=== PATIENT | female | born 1935 | race Caucasian/White ===

== ENCOUNTER 2018-03-04 17:25 | Inpatient (IN) | payer MEDICARE, OTHER ==
[~2018-03-04 17:25] MED LIST: ETOMIDATE 20 MG INJ
[2018-03-04 18:17] LABS: AADO2 Arterial 495.7 mmHg (7.0-24.0); ADD MAN DIFF? NO; Allen Test ACCEPTAB; Arterial Base Excess -1.1 mmol/L (-3.0-3); Arterial Blood Gas Oxygen Sat 97.9 mmHG (95.0-100.0); Arterial COHb 0.9 % (0.0-3.0); Arterial Fraction of Oxyhgb 96.8 % (93.0-99.0); Arterial HCO3 29.8 mmol/L (22.0-26.0); Arterial MetHb 0.2 % (0.0-1.5); Arterial Total Hemglobin 12.5 g/dl (12.0-18.0); MODE MASK - NRB; Site Right Radial
[2018-03-04 18:21] LABS: WHITE BLOOD COUNT 12.7 10^3/ul (4.8-10.8)
[2018-03-04 18:21] LABS: BASOPHIL # 0.1 10^3/ul (0.0-0.1); BASOPHILS % 0.4 % (0.0-2.0); EOSINOPHILS # 0.1 10^3/ul (0.0-0.5); EOSINOPHILS % 0.8 % (0.0-7.0); HEMATOCRIT 37.8 % (37.0-47.0); HEMOGLOBIN 11.1 g/dl (12.0-16.0); LYMPHOCYTES # 2.1 10^3/ul (0.8-2.9); LYMPHOCYTES % 16.6 % (15.0-51.0); MEAN CORPUSCULAR HEMOGLOBIN 27.6 pg (29.0-33.0); MEAN CORPUSCULAR HGB CONC 29.4 g/dl (32.0-37.0); MEAN PLATELET VOLUME 10.5 fl (7.4-10.4); MONOCYTE # 1.3 10^3/ul (0.3-0.9); MONOCYTES % 10.1 % (0.0-11.0); NEUTROPHIL # 8.9 10^3/ul (1.6-7.5); NEUTROPHILS % 70.4 % (39.0-77.0); NUCLEATED RED BLOOD CELLS% 0.2 /100WBC (0.0-0.0); PLATELET COUNT 293 10^3/UL (140-415); RED BLOOD COUNT 4.02 10^6/ul (4.20-5.40); RED CELL DISTRIBUTION WIDTH 15.9 % (11.5-14.5)
[2018-03-04 18:46] LABS: ALANINE AMINOTRANSFERASE 18 IU/L (13-69); ALBUMIN 3.9 g/dl (3.3-4.9); ALBUMIN/GLOBULIN RATIO 1.11; ALKALINE PHOSPHATASE 96 IU/L (42-121); ANION GAP 10 (5-13); ASPARTATE AMINO TRANSFERASE 18 IU/L (15-46); BILIRUBIN,INDIRECT 0.1 mg/dl (0-1.1); BILIRUBIN,TOTAL 0.1 mg/dl (0.2-1.3); BLOOD UREA NITROGEN 38 mg/dl (7-20); CALCIUM 9.3 mg/dl (8.4-10.2); CARBON DIOXIDE 27 mmol/L (21-31); CHLORIDE 104 mmol/L (97-110); CREATININE 1.67 mg/dl (0.44-1.00); GLUCOSE 151 mg/dl (70-220); LIPASE 105 U/L (23-300); POTASSIUM 3.9 mmol/L (3.5-5.1); SODIUM 141 mmol/L (135-144); TOTAL PROTEIN 7.4 g/dl (6.1-8.1)
[2018-03-04 18:57] LABS: TROPONIN-I 0.062 ng/ml (0.000-0.120)
[2018-03-04] MEDS: NORepinephrine 8MG/250 ML (PMX 250 ML IV (19:01)
[2018-03-04] MEDS: PROPOFOL 100 ML IV (19:01)
[2018-03-04] MEDS: ETOMIDATE 20 MG INJ IV (19:05)
[2018-03-04] MEDS: MIDAZOLAM (DRIP) 50 mg/50 mL 50 ML IV (19:13)
[2018-03-04] MEDS: SODIUM CHLORIDE 0.9% 1L BAG IV* (19:14)
[2018-03-04] MEDS: ALBUTEROL 0.5% (NEB) 2.5 MG/0.5 ML AMP INH (19:24)
[2018-03-04] MEDS ORDERED: ACETAMINOPHEN 325 MG TAB PO (19:30)
[2018-03-04] MEDS ORDERED: ALBUTEROL/IPRATROPIUM (NEB) 3 ML AMP HHN (19:30)
[2018-03-04] MEDS ORDERED: NACL 0.9% 3 ML SYG IV (19:30)
[2018-03-04] MEDS ORDERED: LORAZEPAM 2 MG INJ (19:31)
[2018-03-04] MEDS: LORAZEPAM 2 MG INJ IV (19:35)
[2018-03-04] MEDS: CEFTRIAXONE 1 GM/50 ML (PMX) 50 ML IVPB (19:35)
[2018-03-04] MEDS: AZITHROMYCIN 500MG/NS (PMX) 250 ML IVPB (19:59)
[2018-03-04] MEDS: ALBUTEROL/IPRATROPIUM (NEB) 3 ML AMP HHN (20:00)
[2018-03-04] MEDS: BUDESONIDE (NEB) 0.5MG/2ML AMP HHN (20:00)
[2018-03-04] MEDS: METHYLPREDNISOLONE 125 MG INJ IV ×2 (20:08→21:17)
[2018-03-04 20:13] LABS: ADD UMIC YES; UR ASCORBIC ACID NEGATIVE (NEGATIVE); UR BILIRUBIN (Dip) NEGATIVE (NEGATIVE); UR BLOOD (Dip) NEGATIVE (NEGATIVE); UR CLARITY SLIGHTLY CLOUDY (CLEAR); UR COLOR YELLOW (YELLOW); UR GLUCOSE (Dip) NEGATIVE (NEGATIVE); UR HYALINE CAST FEW /HPF (NONE SEEN); UR KETONES (Dip) NEGATIVE (NEGATIVE); UR LEUKOCYTE ESTERASE (Dip) NEGATIVE Leu/ul (NEGATIVE); UR NITRITE (Dip) NEGATIVE (NEGATIVE); UR RBC 4 /HPF (0-5); UR SPECIFIC GRAVITY (Dip) 1.019 (1.003-1.030); UR TOTAL PROTEIN (Dip) 1+ mg/dl (NEGATIVE); UR UROBILINOGEN (Dip) 1+ mg/dL (NEGATIVE); UR WBC 4 /HPF (0-5)
[2018-03-04 21:02] LABS: AADO2 Arterial 199.9 mmHg (7.0-24.0); Arterial Blood Gas Oxygen Sat 98.1 mmHG (95.0-100.0); Arterial COHb 0.3 % (0.0-3.0); Arterial Fraction of Oxyhgb 97.6 % (93.0-99.0); Arterial HCO3 19.7 mmol/L (22.0-26.0); Arterial MetHb 0.2 % (0.0-1.5); Arterial Total Hemglobin 11.1 g/dl (12.0-18.0); Arterial pCO2 35.2 mmhg (35-45); MODE VENT - AC; Site Right Brachial
[2018-03-04 21:10] LABS: B-TYPE NATRIURETIC PEPTIDE 5570 PG/ML (0-450)
[2018-03-04] MEDS: SOD CHLORIDE 0.9% 1,000 ML IV (22:27)
[2018-03-05] MEDS: MIDAZOLAM (DRIP) 50 mg/50 mL 50 ML IV (00:46)
[2018-03-05] MEDS: PIPER-TAZO 3.375 GM IV (PMX) 100 ML IVPB ×3 (05:07→22:37)
[2018-03-05] MEDS: PANTOPRAZOLE 40 MG INJ IV (05:07)
[2018-03-05] MEDS: LEVOFLOXACIN 500MG/D5W (PMX) 100 ML IVPB (05:07)
[2018-03-05 05:10] LABS: ADD MAN DIFF? NO
[2018-03-05 05:16] LABS: BASOPHILS % 0.2 % (0.0-2.0); HEMATOCRIT 31.7 % (37.0-47.0); HEMOGLOBIN 9.9 g/dl (12.0-16.0); LYMPHOCYTES # 0.7 10^3/ul (0.8-2.9); LYMPHOCYTES % 8.6 % (15.0-51.0); MEAN CORPUSCULAR HEMOGLOBIN 27.7 pg (29.0-33.0); MEAN CORPUSCULAR HGB CONC 31.2 g/dl (32.0-37.0); MEAN CORPUSCULAR VOLUME 88.5 fl (82.0-101.0); MEAN PLATELET VOLUME 10.7 fl (7.4-10.4); MONOCYTE # 0.1 10^3/ul (0.3-0.9); MONOCYTES % 0.7 % (0.0-11.0); NEUTROPHIL # 7.6 10^3/ul (1.6-7.5); PLATELET COUNT 263 10^3/UL (140-415); RED BLOOD COUNT 3.58 10^6/ul (4.20-5.40); RED CELL DISTRIBUTION WIDTH 15.8 % (11.5-14.5)
[2018-03-05 05:16] LABS: WHITE BLOOD COUNT 8.6 10^3/ul (4.8-10.8)
[2018-03-05 05:21] LABS: HEMOGLOBIN A1C 6.6 % (0-5.9)
[2018-03-05 05:45] LABS: ALANINE AMINOTRANSFERASE 26 IU/L (13-69); ALBUMIN 3.1 g/dl (3.3-4.9); ALBUMIN/GLOBULIN RATIO 1.19; ALKALINE PHOSPHATASE 75 IU/L (42-121); ANION GAP 10 (5-13); ASPARTATE AMINO TRANSFERASE 15 IU/L (15-46); BILIRUBIN,INDIRECT 0.1 mg/dl (0-1.1); BILIRUBIN,TOTAL 0.1 mg/dl (0.2-1.3); BLOOD UREA NITROGEN 34 mg/dl (7-20); CALCIUM 8.3 mg/dl (8.4-10.2); CARBON DIOXIDE 22 mmol/L (21-31); CHLORIDE 110 mmol/L (97-110); CREATININE 1.33 mg/dl (0.44-1.00); GLUCOSE 166 mg/dl (70-220); MAGNESIUM 1.6 mg/dl (1.7-2.5); POTASSIUM 3.7 mmol/L (3.5-5.1); SODIUM 142 mmol/L (135-144); TOTAL PROTEIN 5.7 g/dl (6.1-8.1)
[2018-03-05] MEDS: METHYLPREDNISOLONE 125 MG INJ IV (07:50)
[2018-03-05] MEDS: PROPOFOL 100 ML IV ×3 (07:51→21:43)
[2018-03-05] MEDS: BUDESONIDE (NEB) 0.5MG/2ML AMP HHN ×2 (09:02→19:39)
[2018-03-05] MEDS: ALBUTEROL/IPRATROPIUM (NEB) 3 ML AMP HHN ×3 (09:02→19:39)
[2018-03-05 10:36] LABS: AADO2 Arterial 184.2 mmHg (7.0-24.0); Allen Test ACCEPTAB; Arterial Base Excess -2.1 mmol/L (-3.0-3); Arterial Blood Gas Oxygen Sat 94.4 mmHG (95.0-100.0); Arterial COHb 0.3 % (0.0-3.0); Arterial Fraction of Oxyhgb 93.9 % (93.0-99.0); Arterial HCO3 20.2 mmol/L (22.0-26.0); Arterial MetHb 0.2 % (0.0-1.5); Arterial Total Hemglobin 11.8 g/dl (12.0-18.0); Arterial pCO2 27.2 mmhg (35-45); MODE VENT - AC; Site Right Radial
[2018-03-05] MEDS: SOD CHLORIDE 0.9% 1,000 ML IV (16:13)
[2018-03-05] MEDS: METHYLPREDNISOLONE 40 MG INJ IV (21:00)
[2018-03-06] MEDS: PROPOFOL 100 ML IV ×5 (00:14→21:22)
[2018-03-06] MEDS: PANTOPRAZOLE 40 MG INJ IV (05:51)
[2018-03-06] MEDS: LEVOFLOXACIN 250MG/D5W (PMX) 50 ML IVPB (05:51)
[2018-03-06] MEDS: PIPER-TAZO 3.375 GM IV (PMX) 100 ML IVPB (05:52)
[2018-03-06 06:19] LABS: ADD MAN DIFF? NO
[2018-03-06 06:25] LABS: WHITE BLOOD COUNT 10.1 10^3/ul (4.8-10.8)
[2018-03-06 06:25] LABS: BASOPHILS % 0.1 % (0.0-2.0); HEMATOCRIT 29.6 % (37.0-47.0); HEMOGLOBIN 9.4 g/dl (12.0-16.0); LYMPHOCYTES # 0.8 10^3/ul (0.8-2.9); LYMPHOCYTES % 8.1 % (15.0-51.0); MEAN CORPUSCULAR HEMOGLOBIN 27.9 pg (29.0-33.0); MEAN CORPUSCULAR HGB CONC 31.8 g/dl (32.0-37.0); MEAN CORPUSCULAR VOLUME 87.8 fl (82.0-101.0); MEAN PLATELET VOLUME 10.7 fl (7.4-10.4); MONOCYTE # 0.7 10^3/ul (0.3-0.9); MONOCYTES % 7.1 % (0.0-11.0); NEUTROPHIL # 8.4 10^3/ul (1.6-7.5); NEUTROPHILS % 83.2 % (39.0-77.0); PLATELET COUNT 268 10^3/UL (140-415); RED BLOOD COUNT 3.37 10^6/ul (4.20-5.40)
[2018-03-06 06:38] LABS: AADO2 Arterial 176.9 mmHg (7.0-24.0); Allen Test ACCEPTAB; Arterial Base Excess -1.9 mmol/L (-3.0-3); Arterial Blood Gas Oxygen Sat 95.8 mmHG (95.0-100.0); Arterial COHb 0.3 % (0.0-3.0); Arterial Fraction of Oxyhgb 95.1 % (93.0-99.0); Arterial MetHb 0.4 % (0.0-1.5); Arterial Total Hemglobin 10.9 g/dl (12.0-18.0); Arterial pCO2 25.7 mmhg (35-45); MODE VENT - AC; Site Right Brachial
[2018-03-06 06:58] LABS: ANION GAP 7 (5-13); BLOOD UREA NITROGEN 38 mg/dl (7-20); CALCIUM 8.3 mg/dl (8.4-10.2); CARBON DIOXIDE 21 mmol/L (21-31); CHLORIDE 114 mmol/L (97-110); CREATININE 1.28 mg/dl (0.44-1.00); GLUCOSE 178 mg/dl (70-220); MAGNESIUM 1.8 mg/dl (1.7-2.5); POTASSIUM 3.7 mmol/L (3.5-5.1); SODIUM 142 mmol/L (135-144)
[2018-03-06] MEDS: ALBUTEROL/IPRATROPIUM (NEB) 3 ML AMP HHN ×3 (08:07→20:03)
[2018-03-06] MEDS: BUDESONIDE (NEB) 0.5MG/2ML AMP HHN ×2 (08:09→20:03)
[2018-03-06] MEDS: METHYLPREDNISOLONE 40 MG INJ IV (08:50)
[2018-03-06] MEDS: ENOXAPARIN 30 MG/0.3 ML SYG SC (08:55)
[2018-03-06] MEDS: morphine 2 MG INJ IV ×3 (10:01→21:29)
[2018-03-06] MEDS: SOD CHLORIDE 0.9% 1,000 ML IV (14:39)
[2018-03-06] MEDS: HALOPERIDOL 5 MG INJ IM (22:28)
[2018-03-07] MEDS: PROPOFOL 100 ML IV ×2 (02:38→05:44)
[2018-03-07] MEDS: PANTOPRAZOLE 40 MG INJ IV (05:02)
[2018-03-07] MEDS: LEVOFLOXACIN 250MG/D5W (PMX) 50 ML IVPB (05:02)
[2018-03-07 05:05] LABS: ADD MAN DIFF? NO
[2018-03-07 05:38] LABS: ANION GAP 5 (5-13); BLOOD UREA NITROGEN 37 mg/dl (7-20); CALCIUM 8.3 mg/dl (8.4-10.2); CARBON DIOXIDE 22 mmol/L (21-31); CHLORIDE 116 mmol/L (97-110); CREATININE 1.05 mg/dl (0.44-1.00); GLUCOSE 122 mg/dl (70-220); POTASSIUM 3.8 mmol/L (3.5-5.1); SODIUM 143 mmol/L (135-144)
[2018-03-07 05:41] LABS: BASOPHILS % 0.1 % (0.0-2.0); EOSINOPHILS % 0.4 % (0.0-7.0); HEMATOCRIT 29.8 % (37.0-47.0); LYMPHOCYTES % 20.4 % (15.0-51.0); MEAN CORPUSCULAR HEMOGLOBIN 27.3 pg (29.0-33.0); MEAN CORPUSCULAR HGB CONC 30.2 g/dl (32.0-37.0); MEAN CORPUSCULAR VOLUME 90.3 fl (82.0-101.0); MEAN PLATELET VOLUME 10.9 fl (7.4-10.4); MONOCYTE # 0.7 10^3/ul (0.3-0.9); MONOCYTES % 7.2 % (0.0-11.0); NEUTROPHIL # 6.9 10^3/ul (1.6-7.5); NEUTROPHILS % 70.9 % (39.0-77.0); NUCLEATED RED BLOOD CELLS% 0.2 /100WBC (0.0-0.0); PLATELET COUNT 240 10^3/UL (140-415); RED CELL DISTRIBUTION WIDTH 16.5 % (11.5-14.5)
[2018-03-07 05:41] LABS: WHITE BLOOD COUNT 9.7 10^3/ul (4.8-10.8)
[2018-03-07 05:42] LABS: POSITIVE DIFF @See below
[2018-03-07] MEDS: SOD CHLORIDE 0.9% 1,000 ML IV (05:44)
[2018-03-07] MEDS: ENOXAPARIN 30 MG/0.3 ML SYG SC (08:24)
[2018-03-07] MEDS: ALBUTEROL/IPRATROPIUM (NEB) 3 ML AMP HHN ×3 (08:32→21:01)
[2018-03-07] MEDS: BUDESONIDE (NEB) 0.5MG/2ML AMP HHN ×2 (08:32→21:01)
[2018-03-07] MEDS: morphine 2 MG INJ IV (08:38)
[2018-03-07 08:56] LABS: ANISOCYTOSIS 1+ (0-0); BURR CELLS 1+ (0-0); EOSINOPHILS % (M) 2 % (0-7); GIANT THROMBO% (M) 1 % (0-0); HYPOCHROMASIA 1+ (0-0); LYMPHOCYTES % (M) 21 % (15-51); METAMYELOCYTES #M 0.1 10^3/ul (0.0-0.0); METAMYELOCYTES %M 2 % (0-0); MICROCYTOSIS 1+ (0-0); MONOCYTE #M 0.5 10^3/ul (0.3-0.9); MONOCYTES % (M) 6 % (0-11); PLATELET ESTIMATE NORMAL; POLYCHROMASIA 1+ (0-0); REACTIVE LYMPHOCYTES% (M) 1 % (0-0); SEGMENTED NEUTROPHILS (M) % 68 % (39-77); SMUDGE%M 4 % (0-0)
[2018-03-07] MEDS: LORAZEPAM 2 MG INJ IV (09:20)
[2018-03-07 09:23] LABS: AADO2 Arterial 145.1 mmHg (7.0-24.0); Allen Test ACCEPTAB; Arterial Base Excess -1.4 mmol/L (-3.0-3); Arterial Blood Gas Oxygen Sat 94.4 mmHG (95.0-100.0); Arterial COHb 0.3 % (0.0-3.0); Arterial Fraction of Oxyhgb 93.9 % (93.0-99.0); Arterial HCO3 24.8 mmol/L (22.0-26.0); Arterial MetHb 0.2 % (0.0-1.5); Arterial Total Hemglobin 10.3 g/dl (12.0-18.0); Arterial pCO2 48.4 mmhg (35-45); Blood Gas PS 10; MODE VENT - CPAP; Site Right Radial
[2018-03-07] MEDS: FUROSEMIDE 40 MG INJ IV ×2 (11:38→18:00)
[2018-03-07] MEDS: HALOPERIDOL 5 MG INJ IM (20:55)
[2018-03-08 05:05] LABS: ADD MAN DIFF? NO
[2018-03-08 05:12] LABS: BASOPHILS % 0.4 % (0.0-2.0); EOSINOPHILS # 0.2 10^3/ul (0.0-0.5); EOSINOPHILS % 2.3 % (0.0-7.0); HEMATOCRIT 35.9 % (37.0-47.0); HEMOGLOBIN 10.9 g/dl (12.0-16.0); LYMPHOCYTES # 1.4 10^3/ul (0.8-2.9); LYMPHOCYTES % 14.2 % (15.0-51.0); MEAN CORPUSCULAR HEMOGLOBIN 27.2 pg (29.0-33.0); MEAN CORPUSCULAR HGB CONC 30.4 g/dl (32.0-37.0); MEAN CORPUSCULAR VOLUME 89.5 fl (82.0-101.0); MEAN PLATELET VOLUME 10.6 fl (7.4-10.4); MONOCYTE # 0.8 10^3/ul (0.3-0.9); MONOCYTES % 7.6 % (0.0-11.0); NEUTROPHIL # 7.6 10^3/ul (1.6-7.5); NEUTROPHILS % 74.4 % (39.0-77.0); PLATELET COUNT 270 10^3/UL (140-415); RED BLOOD COUNT 4.01 10^6/ul (4.20-5.40); RED CELL DISTRIBUTION WIDTH 16.3 % (11.5-14.5)
[2018-03-08 05:12] LABS: WHITE BLOOD COUNT 10.2 10^3/ul (4.8-10.8)
[2018-03-08] MEDS: LEVOFLOXACIN 250MG/D5W (PMX) 50 ML IVPB (05:24)
[2018-03-08] MEDS: FUROSEMIDE 40 MG INJ IV ×2 (05:26→18:14)
[2018-03-08 05:34] LABS: ANION GAP 7 (5-13); BLOOD UREA NITROGEN 28 mg/dl (7-20); CALCIUM 8.9 mg/dl (8.4-10.2); CARBON DIOXIDE 29 mmol/L (21-31); CHLORIDE 110 mmol/L (97-110); CREATININE 1.07 mg/dl (0.44-1.00); GLUCOSE 93 mg/dl (70-220); MAGNESIUM 1.8 mg/dl (1.7-2.5); POTASSIUM 3.5 mmol/L (3.5-5.1); SODIUM 146 mmol/L (135-144)
[2018-03-08] MEDS: ENOXAPARIN 30 MG/0.3 ML SYG SC (08:26)
[2018-03-08] MEDS: BUDESONIDE (NEB) 0.5MG/2ML AMP HHN ×2 (10:33→20:02)
[2018-03-08] MEDS: ALBUTEROL/IPRATROPIUM (NEB) 3 ML AMP HHN ×3 (10:33→20:02)
[2018-03-08] MEDS: POTASSIUM CHLORIDE (SR) 20 MEQ TAB PO (11:41)
[2018-03-08] MEDS: ONDANSETRON 4 MG INJ IV (12:31)
[2018-03-08] MEDS: IODIXANOL LOCM 100 ML BTL (14:32)
[2018-03-08] MEDS: SOD CHLORIDE 0.9% 100 ML (14:32)
[2018-03-08 14:40] LABS: AADO2 Arterial 176.9 mmHg (7.0-24.0); Allen Test ACCEPTAB; Arterial Base Excess -1.9 mmol/L (-3.0-3); Arterial Blood Gas Oxygen Sat 95.8 mmHG (95.0-100.0); Arterial COHb 0.3 % (0.0-3.0); Arterial Fraction of Oxyhgb 95.1 % (93.0-99.0); Arterial MetHb 0.4 % (0.0-1.5); Arterial Total Hemglobin 10.9 g/dl (12.0-18.0); Arterial pCO2 25.7 mmhg (35-45); MODE VENT - AC; Site Right Brachial
[2018-03-08] MEDS: HYDROCODONE/APAP (5/325) TAB PO (23:45)
[2018-03-09] MEDS: FUROSEMIDE 40 MG INJ IV (05:18)
[2018-03-09 05:38] LABS: ADD MAN DIFF? NO
[2018-03-09] MEDS: LEVOFLOXACIN 250MG/D5W (PMX) 50 ML IVPB (05:39)
[2018-03-09 05:41] LABS: WHITE BLOOD COUNT 15.5 10^3/ul (4.8-10.8)
[2018-03-09 05:42] LABS: BASOPHILS % 0.1 % (0.0-2.0); EOSINOPHILS # 0.1 10^3/ul (0.0-0.5); EOSINOPHILS % 0.3 % (0.0-7.0); HEMATOCRIT 36.3 % (37.0-47.0); HEMOGLOBIN 11.3 g/dl (12.0-16.0); LYMPHOCYTES # 1.4 10^3/ul (0.8-2.9); LYMPHOCYTES % 9.1 % (15.0-51.0); MEAN CORPUSCULAR HEMOGLOBIN 27.8 pg (29.0-33.0); MEAN CORPUSCULAR HGB CONC 31.1 g/dl (32.0-37.0); MEAN CORPUSCULAR VOLUME 89.2 fl (82.0-101.0); MEAN PLATELET VOLUME 10.3 fl (7.4-10.4); MONOCYTES % 6.5 % (0.0-11.0); NEUTROPHIL # 12.8 10^3/ul (1.6-7.5); PLATELET COUNT 256 10^3/UL (140-415); RED BLOOD COUNT 4.07 10^6/ul (4.20-5.40)
[2018-03-09 06:06] LABS: ANION GAP 9 (5-13); BLOOD UREA NITROGEN 36 mg/dl (7-20); CALCIUM 8.8 mg/dl (8.4-10.2); CARBON DIOXIDE 35 mmol/L (21-31); CHLORIDE 100 mmol/L (97-110); CREATININE 1.29 mg/dl (0.44-1.00); GLUCOSE 143 mg/dl (70-220); SODIUM 144 mmol/L (135-144)
[2018-03-09] MEDS: HYDROCODONE/APAP (5/325) TAB PO (06:06)
[2018-03-09] MEDS: ALBUTEROL/IPRATROPIUM (NEB) 3 ML AMP HHN ×3 (08:41→20:02)
[2018-03-09] MEDS: BUDESONIDE (NEB) 0.5MG/2ML AMP HHN ×2 (08:43→20:00)
[2018-03-09] MEDS: ENOXAPARIN 30 MG/0.3 ML SYG SC (09:55)
[2018-03-09] MEDS: CEFEPIME 1GM/50 ML (PMX) 50 ML IVPB ×2 (11:21→20:58)
[2018-03-10] MEDS: LEVOFLOXACIN 250MG/D5W (PMX) 50 ML IVPB (05:25)
[2018-03-10] MEDS: ALBUTEROL/IPRATROPIUM (NEB) 3 ML AMP HHN ×3 (08:10→19:43)
[2018-03-10] MEDS: BUDESONIDE (NEB) 0.5MG/2ML AMP HHN ×2 (08:11→19:43)
[2018-03-10] MEDS: ACETAMINOPHEN 325 MG TAB PO (08:45)
[2018-03-10] MEDS: CEFEPIME 1GM/50 ML (PMX) 50 ML IVPB ×2 (08:46→21:23)
[2018-03-10] MEDS: FUROSEMIDE 40 MG TAB PO (08:46)
[2018-03-10] MEDS: ENOXAPARIN 30 MG/0.3 ML SYG SC (08:55)
[2018-03-10] MEDS: IBUPROFEN 400 MG TAB PO (17:44)
[2018-03-11 05:03] LABS: ADD MAN DIFF? NO
[2018-03-11 05:11] LABS: WHITE BLOOD COUNT 17.8 10^3/ul (4.8-10.8)
[2018-03-11 05:11] LABS: BASOPHILS % 0.2 % (0.0-2.0); EOSINOPHILS % 0.2 % (0.0-7.0); HEMOGLOBIN 10.1 g/dl (12.0-16.0); LYMPHOCYTES # 1.1 10^3/ul (0.8-2.9); LYMPHOCYTES % 6.2 % (15.0-51.0); MEAN CORPUSCULAR HEMOGLOBIN 27.2 pg (29.0-33.0); MEAN CORPUSCULAR HGB CONC 30.6 g/dl (32.0-37.0); MEAN CORPUSCULAR VOLUME 88.9 fl (82.0-101.0); MEAN PLATELET VOLUME 11.1 fl (7.4-10.4); MONOCYTE # 1.3 10^3/ul (0.3-0.9); MONOCYTES % 7.1 % (0.0-11.0); NEUTROPHIL # 15.2 10^3/ul (1.6-7.5); NEUTROPHILS % 85.5 % (39.0-77.0); PLATELET COUNT 255 10^3/UL (140-415); RED BLOOD COUNT 3.71 10^6/ul (4.20-5.40); RED CELL DISTRIBUTION WIDTH 15.6 % (11.5-14.5)
[2018-03-11] MEDS: LEVOFLOXACIN 250MG/D5W (PMX) 50 ML IVPB (05:38)
[2018-03-11 06:23] LABS: ANION GAP 9 (5-13); BLOOD UREA NITROGEN 45 mg/dl (7-20); CALCIUM 8.5 mg/dl (8.4-10.2); CARBON DIOXIDE 33 mmol/L (21-31); CHLORIDE 98 mmol/L (97-110); CREATININE 1.17 mg/dl (0.44-1.00); GLUCOSE 133 mg/dl (70-220); POTASSIUM 3.4 mmol/L (3.5-5.1); SODIUM 140 mmol/L (135-144)
[2018-03-11] MEDS: ALBUTEROL/IPRATROPIUM (NEB) 3 ML AMP HHN ×3 (08:10→19:36)
[2018-03-11] MEDS: BUDESONIDE (NEB) 0.5MG/2ML AMP HHN ×2 (08:10→19:36)
[2018-03-11] MEDS: FUROSEMIDE 40 MG TAB PO (09:41)
[2018-03-11] MEDS: CEFEPIME 1GM/50 ML (PMX) 50 ML IVPB ×2 (09:41→21:02)
[2018-03-11] MEDS: ENOXAPARIN 30 MG/0.3 ML SYG SC (09:57)
[2018-03-11] MEDS: FUROSEMIDE 20 MG INJ IV (17:29)
[2018-03-11] MEDS: ACETAMINOPHEN 325 MG TAB PO (21:02)
== END 2018-03-11 22:41 | DRG 871 ==
LOC: 6WM 03-09 02:56 → E/R 17:25 → ICU 19:15
PROC: 5A1945Z Respiratory Ventilation, 24-96 Consecutive Hours (ICD-10-PCS; principal; 2018-03-04)
PROC: 0BH17EZ Insertion of Endotracheal Airway into Trachea, Via Natural or Artificial Opening (ICD-10-PCS; 2018-03-04)
DX: A41.9 Sepsis, unspecified organism (principal); J96.02 Acute respiratory failure with hypercapnia; J96.01 Acute respiratory failure with hypoxia; J18.9 Pneumonia, unspecified organism; I50.33 Acute on chronic diastolic (congestive) heart failure; N17.9 Acute kidney failure, unspecified; E66.2 Morbid (severe) obesity with alveolar hypoventilation; D63.8 Anemia in other chronic diseases classified elsewhere; Z68.38 Body mass index [BMI] 38.0-38.9, adult; Z87.891 Personal history of nicotine dependence
CPT/HCPCS: 31500; 36600; 71045; 71275; 80048; 80053; 81001; 82803; 82962; 83036; 83690; 83735; 83880; 84100; 84484; 85025; 87040; 87081; 87086; 92526; 92610; 93005; 93306; 94002; 94003; 94640; 94644; 94660; 94770; 96374; 96375; 97110; 97162; 99291-25